=== PATIENT | female | born 1990 | race Caucasian/White ===

== ENCOUNTER 2016-04-07 01:13 | Emergency (ER) | payer BC, OTHER ==
[2016-04-07] MEDS ORDERED: NS 1,000 ML IV ONE (01:31)
[2016-04-07] MEDS ORDERED: DEXAMETHASONE VARIABLE DOSE IVP/PO ONE (01:31)
[2016-04-07] MEDS ORDERED: HALOPERIDOL LACT 5 MG/ML INJ IVP ONE (01:31)
[2016-04-07] MEDS ORDERED: KETOROLAC 30 MG/1 ML SDV IVP ONE (01:31)
[2016-04-07] MEDS ORDERED: DEXAMETHASONE 10 MG/ML VIAL ONE (01:36)
--- NOTE | 2016-04-07 01:37 | EDPHY ---
HPI/HX/ROS/PE/MDM Narrative: Chief complaint: Headache, nausea HPI: 26-year-old female woke this morning with a headache and nausea. Does not have a history of the same. Patient states the headache is behind her left eye and is throbbing. It is about an 8/10. It is not the worst headache of her life. It is not sudden onset. She has had some associated nausea but no vomiting. She does have photophobia and phonophobia. No vision changes. Does not have a family history of headaches. Has been snowboarding but has not taken any falls or hit her head. She does wear helmet. No neck pain or stiffness. No fevers or chills. No recent ill contacts. Last menstrual period is now. ROS: 10 point Review of Systems is negative except as noted in the HPI. Physical exam: Gen: Awake, Alert, No Distress HEENT: Nose: no rhinorrhea Eyes: PERRLA, EOMI Mouth: Moist mucosa Neck: Supple, no JVD, no meningismus, full range of motion without pain, no Kernig's or Brudzinski sign Chest: nontender, lungs clear to auscultation Heart: S1, S2 normal, no murmur Abd: Soft, non-tender, no guarding Back: no CVA tenderness, no midline tenderness Ext: no edema, non-tender Skin: no rash Neuro: CN II-XII intact, Sensation grossly intact, Strength 5/5 in bilateral upper and lower extremities ED Course: 0300 patient is feeling improved. Headache is down to 4/10. No more nausea or vomiting. She is asking to go home. Will discharge with follow-up with primary care physician. MDM: 26-year-old with a migraine type headache. She has no concerning features suggestive of intracranial bleed or infection. Symptoms are improved with nonnarcotic analgesia. She has no meningismus. She is afebrile. She will return for any concerns. - Data Points Medications Given: Discontinued Medications Dexamethasone Sodium Phosphate (Decadron) 10 mg IVP/PO ONCE ONE Stop: 04/07/16 01:32 Last Admin: 04/07/16 01:44 Dose: 10 mg Diphenhydramine HCl (Benadryl Injection) 25 mg IVP EDNOW ONE Stop: 04/07/16 01:32 Last Admin: 04/07/16 01:45 Dose: 25 mg Haloperidol Lactate (Haldol Injection) 2.5 mg IVP EDNOW ONE Stop: 04/07/16 01:32 Last Admin: 04/07/16 01:45 Dose: 2.5 mg Sodium Chloride (Ns) 1,000 mls @ 0 mls/hr IV ONCE ONE PRN Reason: Wide Open Stop: 04/07/16 01:32 Last Admin: 04/07/16 01:44 Dose: 1,000 mls Ketorolac Tromethamine (Toradol) 30 mg IVP ONCE ONE Stop: 04/07/16 01:32 Last Admin: 04/07/16 01:45 Dose: 30 mg General Time Seen by Provider: 04/07/16 01:34 Initial Vital Signs: Initial Vital Signs Temperature (C) 36.6 C 04/07/16 01:16 Heart Rate 53 L 04/07/16 01:16 Respiratory Rate 20 04/07/16 01:16 Blood Pressure 121/70 H 04/07/16 01:16 O2 Sat (%) 99 04/07/16 01:16 O2 Delivery Mode Room Air Allergies/Adverse Reactions: No Known Allergies Allergy (Unverified 04/07/16 01:16) Home Medications: Medication Instructions Recorded NK [No Known Home Meds] 04/07/16 Departure - Departure Disposition: Home, Routine, Self-Care Clinical Impression: Headache Condition: Good Instructions: General Headache (ED) Additional Instructions: Follow up with her primary care physician in 2-3 days if symptoms are not improving. Return to the emergency department for increasing headache, worsening confusion , nausea, vomiting, fevers, chills, or any other concerns. Referrals: Julieta Roman MD [Primary Care Provider] - As per Instructions
[2016-04-07 03:25] VITALS: BP 116/55; PULSE 72; RESP 16; TEMP 98.4; O2SAT 97
== END 2016-04-07 03:23 | disposition home or self-care (01) ==
DX: R51 Headache (principal)
CPT/HCPCS: 96374; J1885